=== PATIENT | male | born 1975 | race Two or more races ===

== ENCOUNTER 2022-09-15 18:52 | Inpatient (IN) | payer MEDICAID, SELFPAY ==
--- NOTE | ~2022-09-15 | XR_ITS ---
EXAMINATION: XR CHEST CLINICAL INFORMATION: Cough, fever, chills. COMPARISON: None TECHNIQUE: Frontal view of the chest was obtained. FINDINGS: The lungs are well expanded. There is no focal consolidation, edema, or effusion. No pneumothorax. The cardiomediastinal silhouette is within normal limits. No acute osseous abnormality. XR/XR chest 1V IMPRESSION: Clear lungs.
[2022-09-15 21:12] VITALS: BP 141/51; PULSE 90; RESP 14; TEMP 37.7; O2SAT 94; BMI 22.1
[2022-09-15 21:27] LABS: Glucose, Whole Blood 389 mg/dL (60-115)
[2022-09-16 05:51] VITALS: BP 124/81; PULSE 78; RESP 18; TEMP 37; O2SAT 96
[2022-09-16 06:04] LABS: Glucose, Whole Blood 268 mg/dL (60-115)
[2022-09-16 06:06] VITALS: TEMP 37.5
--- NOTE | 2022-09-16 06:28 | PC.NURSE ---
this rn assumed care of pt @ [id number]. pt brought back to room from waiting room. iv placed L FA. blood work obtained at this time and sent down to lab. pt cousin at bedside
[2022-09-16 06:30] LABS: Basophils Percent Auto 0.1 % (0-2); Eosinophils Absolute Auto 0.1 X10*3/uL (0.0-0.4); Eosinophils Percent Auto 1.5 % (0-4); Hemoglobin 11.2 g/dl (14.0-18.0); Imm Gran Abs Auto 0.02 X10*3/uL (0.00-0.03); Imm Gran Pct Auto 0.2 % (0.0-0.4); Lymphocytes Absolute Auto 1.3 X10*3/uL (1.2-4.9); Lymphocytes Percent Auto 15.5 % (20-40); MANUAL DIFF FLAG NO; Mean Corpuscular HGB Conc 32.9 g/dl (31.0-36.0); Mean Corpuscular Hemoglobin 27.1 pg (27.0-33.0); Mean Corpuscular Volume 82.1 fL (80.0-98.0); Mean Platelet Volume 9.6 fL (9.4-12.4); Monocytes Absolute Auto 0.8 X10*3/uL (0.1-1.2); Monocytes Percent Auto 9.6 % (2-11); Neutrophils Absolute Auto 5.9 x10*3/uL (2.0-8.3); Neutrophils Percent Auto 73.1 % (45-73); Platelet Count 223 X10*3/uL (160-400); Red Blood Count 4.14 X10*6/uL (4.60-5.80); Red Cell Distribution Width 13.2 % (11.0-16.0)
[2022-09-16 06:53] LABS: Alanine Aminotransferase 23 U/L (0-40); Alkaline Phosphatase 45 U/L (39-117); Anion Gap 12 (12-20); Aspartate Amino Transferase 22 U/L (5-37); Bilirubin Total 0.7 mg/dL (0.0-1.0); Blood Urea Nitrogen 8 mg/dL (9-16); Calcium 7.7 mg/dL (8.4-10.2); Carbon Dioxide 23 mmol/L (22-29); Chloride 103 mmol/L (96-108); Creatinine Clr Calc Pharmacy 140.9; Estimated Glomerular Filt Rate > 60; Glucose Random 282 mg/dL (60-115); Potassium 4.4 mmol/L (3.3-5.1); Sodium 134 mmol/L (135-145); Total Protein 5.6 g/dL (6.5-8.0)
[2022-09-16 07:16] VITALS: BP 117/61; PULSE 73; RESP 20; TEMP 36.7; O2SAT 96
--- NOTE | 2022-09-16 10:11 | ED_ITS ---
HPI - General Adult General Chief complaint: General Medical Stated complaint: Diabetic Leg Swelling/ Hand numbness Time Seen by Provider: 09/16/22 10:11 Source: patient Mode of arrival: ambulatory Limitations: no limitations History of Present Illness HPI narrative: 47-year-old male who presents emergency department for evaluation of swelling of his hands and feet times 2-3 days, erythema and pain in his groin area times 2-3 days. The patient is homeless. He states he was incarcerated from April to June while he was incarcerated his diabetes was treated with Lantus 60 units at night and insulin prior to meals. He also states that he was on methadone 85 mg daily. Since being [facility] he is not taking insulin or methadone. He states that he last injected heroin 2 months prior but is continuing to use intranasal heroin 8 to 10 bags per day. He states he last used 2 bags of heroin yesterday. Patient also smokes crack cocaine 8-9 rocks daily and last used yesterday as well. He states that over the past 2-3 days he has had redness and swelling of his hands with some pain in the swollen area. He has also noted swelling in his feet with no erythema, not as prominent as in his hands. He also states that he has a rash in his groin area that is red, hot and painful. He has been applying Vaseline to the groin rash. Review of systems positive for fever, chills, rhinorrhea, sore throat, cough, chest pain, shortness of breath, nausea, vomiting and diarrhea. Related Data Allergies Allergy/AdvReac Type Severity Reaction Status Date / Time No Known Allergies Allergy Unknown NONE Unverified 04/02/20 16:02 [NO KNOWN ALLERGIES] Review of Systems Review of Systems: Yes all other systems are reviewed and are negative [facility] Social History Social History Advance Directives: No Advance Directives Information Provided: No Physical Exam ED Vital Signs: Vital Signs - 24 hr 09/15/22 21:12 09/16/22 05:51 09/16/22 06:06 Temperature 99.8 F 98.6 F 99.5 F Pulse Rate 90 78 Respiratory Rate 14 18 Blood Pressure 141/51 H 124/81 Pulse Oximetry 94 96 Oxygen Delivery Method Room Air 09/16/22 07:16 09/16/22 11:18 Temperature 98.0 F 98.6 F Pulse Rate 73 67 Respiratory Rate 20 18 Blood Pressure 117/61 121/64 Pulse Oximetry 96 98 Oxygen Delivery Method Room Air Room Air BMI result Body Mass Index 22.1 Const Other: Awake, alert, male patient, pleasant, cooperative does not appear to be in distress. Does not appear to be actively withdrawing from opiates [facility] Head: Yes normal to inspection, Yes normocephalic and Yes atraumatic Ears: external ears normal General nose exam: Normal external nose present Face and sinus: Yes normal facial exam Mouth: Normal oral and palatal mucosa present Throat: Yes posterior oropharynx normal Eyes General: appearance normal, both eyes and all related structures Pupils: Equal, round and reactive pupils present Neck Neck: Yes normal visual inspection, Yes no lymphadenopathy, Yes trachea midline and Yes supple Chest Chest palpation & inspection: normal inspection of the chest and normal palpation of entire chest wall Resp Effort & Inspection: normal respiratory effort and able to speak in complete sentences Auscultation: clear to auscultation bilaterally Cardio Rate: regular rate Rhythm: regular rhythm Heart sounds: S1 normal heart sound present, S2 normal heart sound present and no murmurs GI Inspection: Yes normal to inspection Palpation (GI): Soft to palpation, nontender and no guarding Auscultation: normal bowel sounds Other: Patient has a erythematous warm rash to the triggers areas of the groin, covering the penis, scrotum peritoneal area and buttocks area General: Yes no CVA tenderness Back/Spine/Pelvis Back: no CVA tenderness Neuro Cranial nerves: Yes CN's II-XII intact bilaterally and Yes Equal, round and reactive pupils present Cognition (Neuro): normal cognition Motor exam (neuro): 5/5 motor strength present throughout Extrem Other: Bilateral hand swelling, symmetric, with erythema increased warmth, tender to palpation Psych Appearance: grossly normal Speech and movement: Normal speech and movement present Affect: normal affect Attitude: cooperative Medical Decision Making Medical Decision Making MDM Narrative: 47-year-old male with a history of diabetes mellitus, heroin and crack cocaine use disorder, uses daily but denies injection use, non with insulin times several months who presents emergency department for evaluation of swelling of his hands bilaterally x3 days and rash in the groin area. Patient has also been experiencing fever, chills, rhinorrhea, sore throat, cough, chest pain, shortness of breath, nausea, vomiting and diarrhea. The patient exam did reveal bilateral hand swelling with erythema and warmth, concerned the patient may have cellulitis verses inflammatory arthritis. Patient's grain rash is also concerning for cellulitis versus a fungal infection. I did order laboratory evaluation on the patient. I also ordered a care team consult for the patient to evaluate him for possible restarting methadone for is heroin use disorder. 12 17: Patient's laboratory evaluation did reveal elevated inflammatory markers (ESR and CRP) otherwise unremarkable. COVID-19 was negative. Patient was ordered to get vancomycin 1750 mg IV and ceftriaxone 1 g IV. I also ordered nystatin ointment to be applied to the groin and peritoneal rash. Patient was evaluated by the care team and they recommended starting the patient on methadone 30 mg daily and they will follow the patient to determine further dosing. I did discuss, over tiger text, the patient with the covering hospitalist, Dr. Cheek and the patient will be admitted for further treatment. Differential Diagnosis Differential diagnosis includes was not limited to cellulitis of the hands, inflammatory arthritis of the hands cellulitis of the groin and buttocks area, fungal infection of the groin buttocks area, bacteremia, opiate withdrawal Consult Healthcare Provider Management of the patient was discussed with: Hospitalist Lab Data MDM Lab Attestation statement: I reviewed the patient's lab results. My independent interpretation patient's laboratory evaluation as follows: WBC normal 8000, anemia with an H&H of 12 and 34. Glucose elevated 282. ESR elevated 34. CRP elevated 11.9. Lactate was normal 0.7 09/16/22 06:26 09/16/22 06:26 Labs: Lab Results 09/15/22 09/16/22 09/16/22 Range/Units 21:22 06:00 06:26 WBC 8.0 (4.8-10.8) X10*3/uL RBC 4.14 L (4.60-5.80) X10*6/uL Hgb 11.2 L (14.0-18.0) g/dl Hct 34.0 L (42.0-52.0) % MCV 82.1 (80.0-98.0) fL MCH 27.1 (27.0-33.0) pg MCHC 32.9 (31.0-36.0) g/dl RDW 13.2 (11.0-16.0) % Plt Count 223 (160-400) X10*3/uL MPV 9.6 (9.4-12.4) fL Immature Gran % (Auto) 0.2 (0.0-0.4) % Neut % (Auto) 73.1 H (45-73) % Lymph % (Auto) 15.5 L (20-40) % [place] % (Auto) 9.6 (2-11) % Eos % (Auto) 1.5 (0-4) % Baso % (Auto) 0.1 (0-2) % Lymph # (Auto) 1.3 (1.2-4.9) X10*3/uL [place] # (Auto) 0.8 (0.1-1.2) X10*3/uL Eos # (Auto) 0.1 (0.0-0.4) X10*3/uL Baso # (Auto) 0.0 (0.0-0.2) X10*3/uL Abs Immat Gran (auto) 0.02 (0.00-0.03) X10*3/uL Absolute Neuts (auto) 5.9 (2.0-8.3) x10*3/uL Absolute Nucleated RBC 0.000 (0.0-0.012) X10*3/uL Nucleated RBC % (auto) 0.0 (0.0-0.2) /100WBC ESR (0-15) MM/HR Sodium (135-145) mmol/L Potassium (3.3-5.1) mmol/L Chloride (96-108) mmol/L Carbon Dioxide (22-29) mmol/L Anion Gap (12-20) BUN (9-16) mg/dL Creatinine (0.5-1.4) mg/dL Estim Creat Clear Calc Estimated GFR POC Glucose 389 H* 268 H (60-115) mg/dL Random Glucose (60-115) mg/dL Uric Acid (3.4-7.0) mg/dL Calcium (8.4-10.2) mg/dL Total Bilirubin (0.0-1.0) mg/dL AST (5-37) U/L ALT (0-40) U/L Alkaline Phosphatase (39-117) U/L C-Reactive Protein (< or = 0.50) mg/dL Total Protein (6.5-8.0) g/dL Albumin (3.5-5.0) g/dL 09/16/22 09/16/22 Range/Units 06:26 06:26 WBC (4.8-10.8) X10*3/uL RBC (4.60-5.80) X10*6/uL Hgb (14.0-18.0) g/dl Hct (42.0-52.0) % MCV (80.0-98.0) fL MCH (27.0-33.0) pg MCHC (31.0-36.0) g/dl RDW (11.0-16.0) % Plt Count (160-400) X10*3/uL MPV (9.4-12.4) fL Immature Gran % (Auto) (0.0-0.4) % Neut % (Auto) (45-73) % Lymph % (Auto) (20-40) % [place] % (Auto) (2-11) % Eos % (Auto) (0-4) % Baso % (Auto) (0-2) % Lymph # (Auto) (1.2-4.9) X10*3/uL [place] # (Auto) (0.1-1.2) X10*3/uL Eos # (Auto) (0.0-0.4) X10*3/uL Baso # (Auto) (0.0-0.2) X10*3/uL Abs Immat Gran (auto) (0.00-0.03) X10*3/uL Absolute Neuts (auto) (2.0-8.3) x10*3/uL Absolute Nucleated RBC (0.0-0.012) X10*3/uL Nucleated RBC % (auto) (0.0-0.2) /100WBC ESR 34 H (0-15) MM/HR Sodium 134 L (135-145) mmol/L Potassium 4.4 (3.3-5.1) mmol/L Chloride 103 (96-108) mmol/L Carbon Dioxide 23 (22-29) mmol/L Anion Gap 12 (12-20) BUN 8 L (9-16) mg/dL Creatinine 0.61 (0.5-1.4) mg/dL Estim Creat Clear Calc 140.9 Estimated GFR > 60 POC Glucose (60-115) mg/dL Random Glucose 282 H (60-115) mg/dL Uric Acid 2.1 L (3.4-7.0) mg/dL Calcium 7.7 L (8.4-10.2) mg/dL Total Bilirubin 0.7 (0.0-1.0) mg/dL AST 22 (5-37) U/L ALT 23 (0-40) U/L Alkaline Phosphatase 45 (39-117) U/L C-Reactive Protein 11.94 H (< or = 0.50) mg/dL Total Protein 5.6 L (6.5-8.0) g/dL Albumin 3.0 L (3.5-5.0) g/dL Discharge Plan Discharge Patient Disposition: Admitted As Inpatient Interventions: JACOB Worksheet Last Done: 09/15/22 23:47
[2022-09-16 11:06] LABS: C Reactive Protein 11.94 mg/dL (< or = 0.50); Uric Acid 2.1 mg/dL (3.4-7.0)
[2022-09-16 11:18] VITALS: BP 121/64; PULSE 67; RESP 18; TEMP 37; O2SAT 98
--- NOTE | 2022-09-16 11:23 | PC.NURSE ---
Patient sitting on bed, no apparent distress noted, swelling noted to bilateral hands. Blood cultures being obtained at this time.
--- NOTE | 2022-09-16 11:28 | MHC.RECOVRN ---
Met with pt in ED19 after consult placed to CARE Team for OUD. Pt sitting in bed, awake, alert, easily engages in conversation, appears restless, yawning. Pt reports using heroin, 1-1.5 bundles daily, occasionally IV but mostly IN, last use yesterday. Pt reports the same amount of crack/cocaine, IN/INH. Pt reports abdominal cramping, body aches, anxiety. Pt was in snf from April-Jun 24 and had been on 85 mg methadone, per pt report. Upon release, pt reports miscommunication with [facility]ke[facility] and did not continue methadone. Pt would like to restart and connect to [facility] while here. Discussed with Miranda Wong APRN.
[2022-09-16 11:38] LABS: Erythrocyte Sedimentation Rate 34 MM/HR (0-15)
[2022-09-16 11:49] LABS: COVID-19 Test Negative (Negative); IDNOW Serial# 6674DD1D
[2022-09-16] MEDS: vancomycin HCL 1,000 MG, vancomycin HCL 750 MG in 0.9 % Sodium Chloride 500 ML 267.5 MG IV (12:01)
[2022-09-16 12:09] LABS: Lactic Acid 0.7 mmol/L (0.5-2.0)
--- NOTE | 2022-09-16 12:14 | PHA.PROG ---
Admission Date/Time: Indication: SKIN/STRUCTURE INFECTION Weight in k.039 kg Adjusted body weight in K.039 [place] body weight in K.7 Obesity Dosing Indication % IBW: 22.2 Serum Creatinine - Last 168 Hours 09/16/22 06:26 Creatinine 0.61 Estimated CrCl and GFR - Last 168 Hours 09/16/22 06:26 Estim Creat Clear Calc 140.9 Estimated GFR > 60 Vancomycin Loading Dose: 1750 Current Vancomycin Dosing Regimen: 1250 MG Q12 Vancomycin Monitoring using AUC goal of 400 - 600 range with trough as surrogate marker: EXPECTED AUC 433 AFTER 3RD DOSE Date and Time for next Vancomycin Level to be drawn: 09/17/22 @2100 Pharmacist Comments on Vancomycin Plan: GOOD RENAL FUNCTION. WILL MONITOR SCR DAILY FOR CHANGES. Vancomycin dosing will take advantage of [employer] as a clinical decision support tool that uses Bayesian modeling to calculate individual patient's pharmacokinetic parameters and forecast the patient's drug concentration time course with the target goal AUC 24 range of 400 - 600 mg/L/hr.
--- NOTE | 2022-09-16 12:25 | PM.IMHP ---
History of Present Illness Date of Service: 09/16/22 Chief Complaint: hand swelling and pain 47M PMH polysubstance use, now inhaled, last used iv about 1 year ptp per patient, DM non compliant, presented with 2-3 days bilateral hand and bilateral foot pain swelling and erythema as well as bilateral groind pain and erythema. Patient reports subjective fevers. Has not had similar symptoms in the past. Denies injecting within the past year. In ED was afebrile, elevated ESR and CRP. Review of Systems Review of Systems: Yes all other systems are reviewed and are negative [facility] Medical History (Updated 09/16/22 @ 12:28 by Sundeep Cheek MD) Diabetes mellitus Social History (Updated 09/16/22 @ 12:28 by Sundeep Cheek MD) Patient Tobacco Use Status: Current everyday Tobacco user Substance Use Type: Crack/Cocaine and Heroin Advance Directives: No Advance Directives Information Provided: No Meds Allergies Allergy/AdvReac Type Severity Reaction Status Date / Time No Known Allergies Allergy Unknown NONE Unverified 04/02/20 16:02 [NO KNOWN ALLERGIES] Active Medications: Current Medications Dextrose (Dextrose 50 % 25 Gm/50 Ml Syringe) 25 gm IVPUSH Q15M PRN; Protocol PRN Reason: per Hypoglycemia Standing Ord. Glucose (Glucose Gel 15 Gm Gel..Gram.) 15 gm PO Q15M PRN; Protocol PRN Reason: per Hypoglycemia Standing Ord. Vancomycin HCl 1,250 mg/ (Sodium Chloride) 250 mls @ 166.667 mls/hr IV Q12H [facility] Insulin Human Lispro (Insulin Lispro 100 Unit/Ml 3 Ml Vial) 0 unit SUBCUT QIDACHS [facility]; Protocol Pharmacy Consult (Consult Rx Vancomycin Dosing) 1 each MISCELLANE DAILY PRN PRN Reason: Consult order Sodium Chloride (0.9 % Sodium Chloride Flush 3 Ml Syringe) 3 ml IVFLUSH QSHIFT [facility] Physical Exam Vital Signs and Narrative: Vital Signs: Last Vital Signs Temp 98.6 F 09/16/22 11:18 Pulse 67 09/16/22 11:18 Resp 18 09/16/22 11:18 BP 121/64 09/16/22 11:18 Pulse Ox 98 09/16/22 11:18 O2 Del Method 09/16/22 11:18 BMI result Body Mass Index 22.1 Results Labs 09/16/22 06:26 09/16/22 06:26 Labs: Laboratory Results - last 24 hr 09/15/22 09/16/22 09/16/22 21:22 06:00 06:26 MCV 82.1 MCH 27.1 MCHC 32.9 RDW 13.2 Plt Count 223 MPV 9.6 Immature Gran % (Auto) 0.2 Neut % (Auto) 73.1 H Lymph % (Auto) 15.5 L [place] % (Auto) 9.6 Eos % (Auto) 1.5 Baso % (Auto) 0.1 Lymph # (Auto) 1.3 [place] # (Auto) 0.8 Eos # (Auto) 0.1 Baso # (Auto) 0.0 Abs Immat Gran (auto) 0.02 Absolute Neuts (auto) 5.9 Absolute Nucleated RBC 0.000 Nucleated RBC % (auto) 0.0 ESR Anion Gap Estim Creat Clear Calc Estimated GFR POC Glucose 389 H* 268 H Random Glucose Lactic Acid Uric Acid Calcium Total Bilirubin AST ALT Alkaline Phosphatase C-Reactive Protein Total Protein Albumin COVID-19 ([facility]) COVID-two.42.solutions Clin Com 09/16/22 09/16/22 09/16/22 06:26 06:26 11:24 MCV MCH MCHC RDW Plt Count MPV Immature Gran % (Auto) Neut % (Auto) Lymph % (Auto) [place] % (Auto) Eos % (Auto) Baso % (Auto) Lymph # (Auto) [place] # (Auto) Eos # (Auto) Baso # (Auto) Abs Immat Gran (auto) Absolute Neuts (auto) Absolute Nucleated RBC Nucleated RBC % (auto) ESR 34 H Anion Gap 12 Estim Creat Clear Calc 140.9 Estimated GFR > 60 POC Glucose Random Glucose 282 H Lactic Acid Uric Acid 2.1 L Calcium 7.7 L Total Bilirubin 0.7 AST 22 ALT 23 Alkaline Phosphatase 45 C-Reactive Protein 11.94 H Total Protein 5.6 L Albumin 3.0 L COVID-19 ([facility]) Negative COVID-19 Clin Com See Note 09/16/22 11:49 MCV MCH MCHC RDW Plt Count MPV Immature Gran % (Auto) Neut % (Auto) Lymph % (Auto) [place] % (Auto) Eos % (Auto) Baso % (Auto) Lymph # (Auto) [place] # (Auto) Eos # (Auto) Baso # (Auto) Abs Immat Gran (auto) Absolute Neuts (auto) Absolute Nucleated RBC Nucleated RBC % (auto) ESR Anion Gap Estim Creat Clear Calc Estimated GFR POC Glucose Random Glucose Lactic Acid 0.7 Uric Acid Calcium Total Bilirubin AST ALT Alkaline Phosphatase C-Reactive Protein Total Protein Albumin COVID-19 ([facility]) COVID-19 Clin Com Assessment and Plan (1) Diabetes mellitus: Status: Acute Plan 47M PMH polysubstance use and DM presented with oligoarthritis and erythema oligoarthritis and cellulitis vanc, rocephin follow up cultures, ID check hiv, hepatitis b,c polysubstance dependence with opiate withdrawal methadone addiction team following DM with hyperglycemia insulin monitor pocs dvt prophylaxis - lovenox full code patient with significant pain and withdrawal symptoms, at risk for sepsis and bacteremia due to substance use, therefore, expected to require atleast 2 midnights inpatient. Time Spent With Patient Time: Total time managing care of this patient today ____ minutes. Quality Stroke Does the patient have a stroke diagnosis?: No VTE Prior VTE?: No VTE Risk Level:: Medical - moderate - high VTE Device Contraindication: Treatment Not Indicated VTE Drug Contraindication: N/A - Med Ordered
[2022-09-16] MEDS: methADONE HCl 20 MG/2 ML ORAL.CONC 30 MG PO (12:26)
[2022-09-16 12:28] VITALS: BP 131/58; PULSE 69; RESP 18; O2SAT 98
--- NOTE | 2022-09-16 12:39 | PC.NURSE ---
pt alert and oriented, skin appropriate for ethnicity, respirations even and unlabored, pt's bilateral arms swollen/red/tender to touch reports pain 03/26 also states that he had tingling/numbness in bilateral legs pt's belongings secured with security because pt reports having hx of use of heroin/cocaine and crack. pt started on methadone to prevent withdrawals last use was yesterday
[2022-09-16 12:53] VITALS: BP 159/74; PULSE 63; RESP 16; TEMP 36.6; O2SAT 98
[2022-09-16] MEDS: cefTRIAXone sodium 1 GM in 0.9 % Sodium Chloride 50 ML IV (14:52)
[2022-09-16] MEDS: Nystatin Ointment 15 GM TUBE 1 APPL TOPICAL (14:53)
--- NOTE | 2022-09-16 15:24 | PC.NURSE ---
report received from JOVON Kidd Pt resting on stretcher at this time, Ceftriaxone finishing at this time. Pt reports continued pain in right hand. Pt provided with water at this time. Awaiting bed assignment
--- NOTE | 2022-09-16 16:02 | P.CNID_ITS ---
History of Present Illness Data of Consult Service Date: 09/16/22 Requesting physician: Sundeep Cheek Primary Care Provider: Unknown Physician HPI Reason for consult: hand pain and swelling He reports redness and swelling bilateral hands and feet over last three days. He reports snorting heroin and has taken cocaine. he has no fever or chills. Review of Systems Review of Systems: Yes all other systems are reviewed and are negative [facility] Past Medical History Medical History Diabetes mellitus Family History Family history: reviewed and not pertinent Social History Social History Patient Tobacco Use Status: Current everyday Tobacco user Substance Use Type: Crack/Cocaine and Heroin Advance Directives: No Advance Directives Information Provided: No Meds Allergies Allergy/AdvReac Type Severity Reaction Status Date / Time No Known Allergies Allergy Unknown NONE Unverified 04/02/20 16:02 [NO KNOWN ALLERGIES] Active Medications: Current Medications Dextrose (Dextrose 50 % 25 Gm/50 Ml Syringe) 25 gm IVPUSH Q15M PRN; Protocol PRN Reason: per Hypoglycemia Standing Ord. Glucose (Glucose Gel 15 Gm Gel..Gram.) 15 gm PO Q15M PRN; Protocol PRN Reason: per Hypoglycemia Standing Ord. Vancomycin HCl 1,250 mg/ (Sodium Chloride) 250 mls @ 166.667 mls/hr IV Q12H [facility] Ceftriaxone Sodium 1 gm/ (Sodium Chloride) 50 mls @ 100 mls/hr IV Q24H [facility] Last Infusion: 09/16/22 15:26 Dose: Infused Insulin Human Lispro (Insulin Lispro 100 Unit/Ml 3 Ml Vial) 0 unit SUBCUT QIDACHS [facility]; Protocol Pharmacy Consult (Consult Rx Vancomycin Dosing) 1 each MISCELLANE DAILY PRN PRN Reason: Consult order Sodium Chloride (0.9 % Sodium Chloride Flush 3 Ml Syringe) 3 ml IVFLUSH QSHIFT [facility] Last Admin: 09/16/22 15:22 Dose: Not Given Physical Exam Vital Signs: Vital Signs: Last Vital Signs Temp 97.8 F 09/16/22 12:53 Pulse 63 09/16/22 12:53 Resp 16 09/16/22 12:53 BP 159/74 H 09/16/22 12:53 Pulse Ox 98 09/16/22 12:53 O2 Del Method 09/16/22 12:53 BMI result Body Mass Index 22.1 Extrem: Other: reddened hands but can make fist Results Labs 09/16/22 06:26 09/16/22 06:26 Labs: Short CBC 09/16/22 Range/Units 06:26 WBC 8.0 (4.8-10.8) X10*3/uL Hgb 11.2 L (14.0-18.0) g/dl Hct 34.0 L (42.0-52.0) % Plt Count 223 (160-400) X10*3/uL BMP 09/16/22 06:26 Sodium 134 L Potassium 4.4 Chloride 103 Carbon Dioxide 23 BUN 8 L Creatinine 0.61 Calcium 7.7 L Liver Function 09/16/22 Range/Units 06:26 Total Bilirubin 0.7 (0.0-1.0) mg/dL AST 22 (5-37) U/L ALT 23 (0-40) U/L Alkaline Phosphatase 45 (39-117) U/L Albumin 3.0 L (3.5-5.0) g/dL Assessment and Plan (1) Diabetes mellitus: Status: Acute (2) Cellulitis of hand, right: Status: Acute (3) Cellulitis of hand, left: Status: Acute He is nontoxic and can bend hands so concern over frostbite. He is homeless Less likely bacteremia/endocarditis. Plan Vancomycin and Ceftriaxone until blood cultures back. Po Doxycycline for one week 100 mg bid on dischare Check HIV and Hepatititis C. Time Spent With Patient Time: Total time managing care of this patient today ____ minutes.
--- NOTE | 2022-09-16 16:44 | PHA.MEDREC ---
Pharmacy Consult ? Medication Reconciliation Pharmacy has completed the medication reconciliation. Spoke with pt who says he has not been taking any medications.
--- NOTE | 2022-09-16 17:02 | HO.ADDICT_ITS ---
History of Present Illness Date of Service: 09/16/2022 Chief Complaint: Cellulitis, Opiate withdrawal Reason for Consult: OUD --withdrawal managment HPI Narrative: Patient is a 47 year old male currently medically admitted for cellulitis. Patient reporting daily heroin use and withdrawal sx while in ED, ordered and administered methadone 30mg with positive effect. Seen by this underwriter solicitation director and plant health care technician in room 19 of main ED--awaiting transfer to medical floor. Awake, alert, pleasant and engaged in interview. Patient reports 30mg was very helpful, but he is still experiencing some restlessness and joint pain. He reports he would like to continue titrating dose and resume treatment with OTP upon discharge. Review of Systems Constitutional: Reports as per HPI Diagnostics Vital Signs (24Hr): Vital Signs - 24 hr 09/15/22 21:12 09/16/22 05:51 09/16/22 06:06 Temperature 99.8 F 98.6 F 99.5 F Pulse Rate 90 78 Respiratory Rate 14 18 Blood Pressure 141/51 H 124/81 Pulse Oximetry 94 96 Oxygen Delivery Method Room Air 09/16/22 07:16 09/16/22 11:18 09/16/22 12:28 Temperature 98.0 F 98.6 F Pulse Rate 73 67 69 Respiratory Rate 20 18 18 Blood Pressure 117/61 121/64 131/58 L Pulse Oximetry 96 98 98 Oxygen Delivery Method Room Air Room Air Room Air 09/16/22 12:53 Temperature 97.8 F Pulse Rate 63 Respiratory Rate 16 Blood Pressure 159/74 H Pulse Oximetry 98 Oxygen Delivery Method Room Air BMI result Body Mass Index 22.1 Labs 09/16/22 06:26 09/16/22 06:26 Labs: Laboratory Results - last 48 hr 09/15/22 09/16/22 09/16/22 21:22 06:00 06:26 WBC 8.0 RBC 4.14 L Hgb 11.2 L Hct 34.0 L MCV 82.1 MCH 27.1 MCHC 32.9 RDW 13.2 Plt Count 223 MPV 9.6 Immature Gran % (Auto) 0.2 Neut % (Auto) 73.1 H Lymph % (Auto) 15.5 L [place] % (Auto) 9.6 Eos % (Auto) 1.5 Baso % (Auto) 0.1 Lymph # (Auto) 1.3 [place] # (Auto) 0.8 Eos # (Auto) 0.1 Baso # (Auto) 0.0 Abs Immat Gran (auto) 0.02 Absolute Neuts (auto) 5.9 Absolute Nucleated RBC 0.000 Nucleated RBC % (auto) 0.0 ESR Sodium Potassium Chloride Carbon Dioxide Anion Gap BUN Creatinine Estim Creat Clear Calc Estimated GFR POC Glucose 389 H* 268 H Random Glucose Lactic Acid Uric Acid Calcium Total Bilirubin AST ALT Alkaline Phosphatase C-Reactive Protein Total Protein Albumin COVID-19 (IV[facility]) COVID-19 Clin Com 09/16/22 09/16/22 09/16/22 06:26 06:26 11:24 WBC RBC Hgb Hct MCV MCH MCHC RDW Plt Count MPV Immature Gran % (Auto) Neut % (Auto) Lymph % (Auto) [place] % (Auto) Eos % (Auto) Baso % (Auto) Lymph # (Auto) [place] # (Auto) Eos # (Auto) Baso # (Auto) Abs Immat Gran (auto) Absolute Neuts (auto) Absolute Nucleated RBC Nucleated RBC % (auto) ESR 34 H Sodium 134 L Potassium 4.4 Chloride 103 Carbon Dioxide 23 Anion Gap 12 BUN 8 L Creatinine 0.61 Estim Creat Clear Calc 140.9 Estimated GFR > 60 POC Glucose Random Glucose 282 H Lactic Acid Uric Acid 2.1 L Calcium 7.7 L Total Bilirubin 0.7 AST 22 ALT 23 Alkaline Phosphatase 45 C-Reactive Protein 11.94 H Total Protein 5.6 L Albumin 3.0 L COVID-19 (IVETH) Negative COVID-19 Indigoz Com See Note 09/16/22 11:49 WBC RBC Hgb Hct MCV MCH MCHC RDW Plt Count MPV Immature Gran % (Auto) Neut % (Auto) Lymph % (Auto) [place] % (Auto) Eos % (Auto) Baso % (Auto) Lymph # (Auto) [place] # (Auto) Eos # (Auto) Baso # (Auto) Abs Immat Gran (auto) Absolute Neuts (auto) Absolute Nucleated RBC Nucleated RBC % (auto) ESR Sodium Potassium Chloride Carbon Dioxide Anion Gap BUN Creatinine Estim Creat Clear Calc Estimated GFR POC Glucose Random Glucose Lactic Acid 0.7 Uric Acid Calcium Total Bilirubin AST ALT Alkaline Phosphatase C-Reactive Protein Total Protein Albumin COVID-19 (IVETH) COVID-19 Clin Com Imaging Radiology Impressions: ITS Impressions Chest X-Ray 09/16/22 12:46 IMPRESSION: Clear lungs. Mental Status Exam Mental Status Exam Patient Appearance: Appropriate Level of Consciousness: Awake, Appropriate and Alert Affect Description: Calm and Appropriate Thought Process: Intact and Goal Oriented Judgement: Good Medications Medications Current Medications Dextrose (Dextrose 50 % 25 Gm/50 Ml Syringe) 25 gm IVPUSH Q15M PRN; Protocol PRN Reason: per Hypoglycemia Standing Ord. Glucose (Glucose Gel 15 Gm Gel..Gram.) 15 gm PO Q15M PRN; Protocol PRN Reason: per Hypoglycemia Standing Ord. Vancomycin HCl 1,250 mg/ (Sodium Chloride) 250 mls @ 166.667 mls/hr IV Q12H [facility] Ceftriaxone Sodium 1 gm/ (Sodium Chloride) 50 mls @ 100 mls/hr IV Q24H [facility] Last Infusion: 09/16/22 15:26 Dose: Infused Insulin Human Lispro (Insulin Lispro 100 Unit/Ml 3 Ml Vial) 0 unit SUBCUT QIDACHS [facility]; Protocol Pharmacy Consult (Consult Rx Vancomycin Dosing) 1 each MISCELLANE DAILY PRN PRN Reason: Consult order Sodium Chloride (0.9 % Sodium Chloride Flush 3 Ml Syringe) 3 ml IVFLUSH QSHIFT [facility] Last Admin: 09/16/22 15:22 Dose: Not Given Allergies Allergies Allergy/AdvReac Type Severity Reaction Status Date / Time No Known Allergies Allergy Unknown NONE Unverified 04/02/20 16:02 [NO KNOWN ALLERGIES] Assessment & Plan Assessment & Plan (1) Opioid use disorder: Status: Acute Code(s): F11.90 - Opioid use, unspecified, uncomplicated Assessment and Plan: * methadone 10mg this evening * methadone 45mg in AM * UDS * clonidine PRN * will continue to follow Total time managing care of this patient today _30___ minutes. [facility] Past Medical History Medical History Diabetes mellitus Family History Family history: reviewed and not pertinent Social History Social History Patient Tobacco Use Status: Current everyday Tobacco user Substance Use Type: Crack/Cocaine and Heroin Advance Directives: No Advance Directives Information Provided: No
[2022-09-16 18:09] LABS: Glucose, Whole Blood 258 mg/dL (60-115)
[2022-09-16] MEDS: methADONE HCl 20 MG/2 ML ORAL.CONC 10 MG PO (19:51)
[2022-09-16] MEDS: cloNIDine HCL 0.1 MG TABLET PO (20:05)
[2022-09-16] MEDS: 0.9 % Sodium Chloride Flush 3 ML SYRINGE IVFLUSH (20:07)
[2022-09-16 21:14] LABS: Glucose, Whole Blood 367 mg/dL (60-115)
[2022-09-16 21:38] LABS: Amphetamine Screen Urine Not Detected (Not Detect); Barbiturates, Urine Not Detected (Not Detect); Benzodiazepines Screen Urine Not Detected (Not Detect); Cannabinoid Screen Urine Not Detected (Not Detect); Cocaine Screen Urine POSITIVE (Not Detect); Fentanyl, urine POSITIVE (Not Detect); Opiate Screen Urine POSITIVE (Not Detect); Phencyclidine Screen Urine Not Detected (Not Detect)
[2022-09-16] MEDS: Insulin Lispro 100 UNIT/ML 3 ML VIAL SUBCUT (22:06)
[2022-09-16] MEDS: vancomycin HCL 1,250 MG in 0.9 % Sodium Chloride 250 ML 166.67 MG IV (22:13)
[2022-09-17 00:29] VITALS: BMI 22.4
[2022-09-17 03:50] VITALS: BP 128/66; PULSE 63; RESP 18; TEMP 36.8; O2SAT 99
[2022-09-17 06:16] LABS: Hematocrit 36.8 % (42.0-52.0); Mean Corpuscular HGB Conc 32.6 g/dl (31.0-36.0); Mean Corpuscular Hemoglobin 26.4 pg (27.0-33.0); Mean Corpuscular Volume 81.1 fL (80.0-98.0); Mean Platelet Volume 9.6 fL (9.4-12.4); Platelet Count 241 X10*3/uL (160-400); Red Blood Count 4.54 X10*6/uL (4.60-5.80); White Blood Count 7.4 X10*3/uL (4.8-10.8)
[2022-09-17 06:50] LABS: Anion Gap 13 (12-20); Blood Urea Nitrogen 11 mg/dL (9-16); Calcium 7.9 mg/dL (8.4-10.2); Carbon Dioxide 24 mmol/L (22-29); Chloride 103 mmol/L (96-108); Creatinine Clr Calc Pharmacy 124.5; Estimated Glomerular Filt Rate > 60; Magnesium 1.9 mg/dL (1.6-2.6); Potassium 4.3 mmol/L (3.3-5.1); Sodium 136 mmol/L (135-145)
[2022-09-17 07:21] LABS: Glucose Fasting 355 mg/dL (60-99)
[2022-09-17 08:00] VITALS: BP 133/63; PULSE 63; RESP 18; TEMP 37.3; O2SAT 98
[2022-09-17 08:12] LABS: Glucose, Whole Blood 292 mg/dL (60-115)
[2022-09-17] MEDS: methADONE HCl 20 MG/2 ML ORAL.CONC 45 MG PO (08:28)
[2022-09-17] MEDS: Insulin Lispro 100 UNIT/ML 3 ML VIAL SUBCUT ×4 (08:31→21:10)
[2022-09-17] MEDS: Insulin Glargine,Hum.rec.anlog 100 UNIT/ML 10 ML VIAL 15 UNIT SUBCUT (08:31)
[2022-09-17] MEDS: 0.9 % Sodium Chloride Flush 3 ML SYRINGE IVFLUSH ×3 (08:31→21:12)
--- NOTE | 2022-09-17 09:34 | P.PNIM_ITS ---
Subjective Subjective Date of Service: 09/17/22 Interval History: improving Physical Exam Vital Signs: Vital Signs: Last Vital Signs Temp 99.2 F 09/17/22 08:00 Pulse 63 09/17/22 08:00 Resp 18 09/17/22 08:00 BP 133/63 09/17/22 08:00 Pulse Ox 98 09/17/22 08:00 O2 Del Method 09/17/22 08:00 BMI result Body Mass Index 22.4 imprving hand swelling and tenderness Objective Data Active Medications Clonidine HCl (Clonidine Hcl 0.1 Mg Tablet) 0.1 mg PO TID PRN; Protocol PRN Reason: anxiety/restlessness Last Admin: 09/16/22 20:05 Dose: 0.1 mg Documented By: ANYA Dextrose (Dextrose 50 % 25 Gm/50 Ml Syringe) 25 gm IVPUSH Q15M PRN; Protocol PRN Reason: per Hypoglycemia Standing Ord. Glucose (Glucose Gel 15 Gm Gel..Gram.) 15 gm PO Q15M PRN; Protocol PRN Reason: per Hypoglycemia Standing Ord. Vancomycin HCl 1,250 mg/ (Sodium Chloride) 250 mls @ 166.667 mls/hr IV Q12H [facility] Last Infusion: 09/17/22 00:09 Dose: 0 mls/hr Documented By: ANYA Ceftriaxone Sodium 1 gm/ (Sodium Chloride) 50 mls @ 100 mls/hr IV Q24H [facility] Last Infusion: 09/16/22 15:26 Dose: 0 mls/hr Documented By: VICTORIANO Insulin Glargine (Insulin Glargine,Hum.Rec.Anlog 100 Unit/Ml 10 Ml Vial) 15 unit SUBCUT DAILY [facility] Last Admin: 09/17/22 08:31 Dose: 15 unit Documented By: VOLODYMYR Insulin Human Lispro (Insulin Lispro 100 Unit/Ml 3 Ml Vial) 0 unit SUBCUT QIDACHS [facility]; Protocol Last Admin: 09/17/22 08:31 Dose: 6 unit Documented By: VOLODYMYR Methadone HCl (Methadone Hcl 20 Mg/2 Ml Oral.Conc) 45 mg PO DAILY [facility] Last Admin: 09/17/22 08:28 Dose: 45 mg Documented By: VOLODYMYR Pharmacy Consult (Consult Rx Vancomycin Dosing) 1 each MISCELLANE DAILY PRN PRN Reason: Consult order Sodium Chloride (0.9 % Sodium Chloride Flush 3 Ml Syringe) 3 ml IVFLUSH QSHIFT [facility] Last Admin: 09/17/22 08:31 Dose: 3 ml Documented By: VOLODYMYR Labs 09/17/22 06:08 09/17/22 06:08 Labs: Laboratory Results - last 24 hr 09/15/22 09/16/22 09/16/22 21:22 06:26 06:26 MCV MCH MCHC RDW Plt Count MPV Absolute Nucleated RBC Nucleated RBC % (auto) ESR 34 H Anion Gap Estim Creat Clear Calc Estimated GFR POC Glucose 389 H* Fasting Glucose Lactic Acid Uric Acid 2.1 L Calcium Magnesium C-Reactive Protein 11.94 H Urine Opiates Screen Urine Fentanyl Screen Ur Barbiturates Screen Ur Phencyclidine Scrn Ur Amphetamines Screen U Benzodiazepines Scrn Urine Cocaine Screen U Marijuana (THC) Screen COVID-19 (IVETH) COVIDInnovid 09/16/22 09/16/22 09/16/22 11:24 11:49 18:06 MCV MCH MCHC RDW Plt Count MPV Absolute Nucleated RBC Nucleated RBC % (auto) ESR Anion Gap Estim Creat Clear Calc Estimated GFR POC Glucose 258 H Fasting Glucose Lactic Acid 0.7 Uric Acid Calcium Magnesium C-Reactive Protein Urine Opiates Screen Urine Fentanyl Screen Ur Barbiturates Screen Ur Phencyclidine Scrn Ur Amphetamines Screen U Benzodiazepines Scrn Urine Cocaine Screen U Marijuana (THC) Screen COVID-19 (IVETH) Negative COVID-19 LocAsian See Note 09/16/22 09/16/22 09/17/22 20:30 20:43 06:08 MCV 81.1 MCH 26.4 L MCHC 32.6 RDW 13.0 Plt Count 241 MPV 9.6 Absolute Nucleated RBC 0.000 Nucleated RBC % (auto) 0.0 ESR Anion Gap Estim Creat Clear Calc Estimated GFR POC Glucose 367 H* Fasting Glucose Lactic Acid Uric Acid Calcium Magnesium C-Reactive Protein Urine Opiates Screen POSITIVE H Urine Fentanyl Screen POSITIVE H Ur Barbiturates Screen Not Detected Ur Phencyclidine Scrn Not Detected Ur Amphetamines Screen Not Detected U Benzodiazepines Scrn Not Detected Urine Cocaine Screen POSITIVE H U Marijuana (THC) Screen Not Detected COVID-19 (IVETH) COVID-MamboCar 09/17/22 09/17/22 06:08 07:54 MCV MCH MCHC RDW Plt Count MPV Absolute Nucleated RBC Nucleated RBC % (auto) ESR Anion Gap 13 Estim Creat Clear Calc 124.5 Estimated GFR > 60 POC Glucose 292 H Fasting Glucose 355 H* Lactic Acid Uric Acid Calcium 7.9 L Magnesium 1.9 C-Reactive Protein Urine Opiates Screen Urine Fentanyl Screen Ur Barbiturates Screen Ur Phencyclidine Scrn Ur Amphetamines Screen U Benzodiazepines Scrn Urine Cocaine Screen U Marijuana (THC) Screen COVID-19 (IVETH) COVID-19 Clin Com Assessment and Plan (1) Opioid use disorder: Status: Acute Plan 47M PMH polysubstance use and DM presented with hand swelling and erythema lanier bite and cellulitis improving continue vanc, rocephin? follow up cultures, ID appreciated follow up hiv, hepatitis b,c polysubstance dependence with opiate withdrawal methadone addiction team following DM with hyperglycemia insulin monitor pocs dvt prophylaxis - lovenox full code reason for continued hospitalization:awaiting cultures Time Spent With Patient Time: Total time managing care of this patient today ____ minutes. Quality Stroke Does the patient have a stroke diagnosis?: No VTE Prior VTE?: No VTE Risk Level:: Medical - moderate - high VTE Device Contraindication: Treatment Not Indicated VTE Drug Contraindication: N/A - Med Ordered
--- NOTE | 2022-09-17 10:24 | MHC.RECOVRN ---
Attempted to meet with pt in 360 to follow up after methadone initiation yesterday. Pt received 45 mg this morning. Pt laying in bed, asleep, briefly wakes to voice. Unable to stay awake for conversation. Will continue to follow.
[2022-09-17 11:20] LABS: Glucose, Whole Blood 237 mg/dL (60-115)
[2022-09-17] MEDS: cefTRIAXone sodium 1 GM in 0.9 % Sodium Chloride 50 ML IV (12:52)
[2022-09-17 13:38] LABS: Vancomycin Random 4.1 mcg/mL (15-20)
--- NOTE | 2022-09-17 13:53 | HE.PHANOTE ---
RE Felisha Patient Lost IV access this morning and missed the 1100 dose. I decided to put in a random level after two doses that came back very low. The dose/frequency was increased to 1g q8h. Suspected AUC at steady state is 490, with a trough of 13.4. Will get a level 3/5 @1200 after three doses. candice
[2022-09-17] MEDS: vancomycin HCL 1,000 MG in 0.9 % Sodium Chloride 250 ML 270 MG IV ×2 (14:47→23:19)
--- NOTE | 2022-09-17 14:49 | MHC.CM.PN ---
PT REPORTS HE IS CURRENTLY HOMELESS HE IS NOT CONNECTED TO ANY COMMUNITY SERVICES HE DOES NOT USE DME HE REPORTS HE NO LONGER HAS A PCP + COVID [facility] DECLINES HCP PT REPORTS HE IS INTERESTED IN GOING TO [facility] FROM HERE RECOVERY CONSULT WILL BE REQUESTED PT WILL NEED TRANSPORT
--- NOTE | 2022-09-17 14:56 | MHC.RECOVRN ---
Met with pt in 360. Awake, alert, easily engages in conversation. Pt reports feeling much better after 45 mg methadone. Prior to dose, pt reports loose stool. Currently, pt reports increase in chills and body aches. Pt would like to continue titrating methadone. Referral placed to [facility] to continue methadone after dc, per pt request. Pt denies other questions or concerns at this time. Discussed with Miranda Wong APRN.
[2022-09-17 15:40] VITALS: BP 100/58; PULSE 79; RESP 20; TEMP 36.6; O2SAT 98
[2022-09-17 15:55] LABS: Glucose, Whole Blood 309 mg/dL (60-115)
[2022-09-17 19:51] VITALS: BP 99/56; PULSE 58; RESP 18; TEMP 37.2; O2SAT 99
[2022-09-17 20:23] LABS: Glucose, Whole Blood 172 mg/dL (60-115)
[2022-09-18 03:31] VITALS: BP 156/70; PULSE 60; RESP 17; TEMP 36.6; O2SAT 98
[2022-09-18] MEDS: vancomycin HCL 1,000 MG in 0.9 % Sodium Chloride 250 ML 270 MG IV (05:31)
[2022-09-18 08:00] VITALS: BP 179/89; PULSE 58; RESP 18; TEMP 37.3; O2SAT 98
[2022-09-18 08:06] LABS: Glucose, Whole Blood 258 mg/dL (60-115)
[2022-09-18] MEDS: Insulin Lispro 100 UNIT/ML 3 ML VIAL SUBCUT ×2 (08:37→12:10)
[2022-09-18] MEDS: methADONE HCl 20 MG/2 ML ORAL.CONC 50 MG PO (08:37)
[2022-09-18] MEDS: Insulin Glargine,Hum.rec.anlog 100 UNIT/ML 10 ML VIAL 15 UNIT SUBCUT (08:37)
[2022-09-18] MEDS: 0.9 % Sodium Chloride Flush 3 ML SYRINGE IVFLUSH (08:38)
--- NOTE | 2022-09-18 08:47 | PM.DS ---
DS: Providers Provider Date of Service: 09/18/22 Date of admission: 09/16/22 12:24 Primary care physician: Unknown Physician Consults: 09/16/22 10:30 Consult to Care Team Stat Comment: Reason for consultation: Heroin use disorder, was on methadone, being admitted for cellulitis 09/16/22 12:05 Addiction Medicine Stat Consulting Provider: Addiction Covering Reason for consultation: METHADONE DOSING Has provider been notified: No 09/16/22 12:21 Consult to Infectious Diseases Routine Consulting Provider: Lorenza Sharp Reason for consultation: oligoarthritis, cellulitis in polysubstance use DS: Diagnosis Discharge Diagnosis (1) Opioid use disorder: Status: Acute DS: Summary Hospital Course Hospital Course: from initial hpi: 47M PMH polysubstance use, now inhaled, last used iv about 1 year ptp per patient, DM non compliant, presented with 2-3 days bilateral hand and bilateral foot pain swelling and erythema as well as bilateral groind pain and erythema.? Patient reports subjective fevers.? Has not had similar symptoms in the past.? Denies injecting within the past year.? In ED was afebrile, elevated ESR and CRP. hospital course: Admitted for frostbite and cellulitis. He was treated with vancomycin ceftriaxone with improvement. Cultures were negative. He was seen by infectious disease recommended screening for viral hepatitis and HIV which was done and pending and should be followed up outpatient and outpatient treatment with doxycycline. Patient was also symptomatic for opiate dependence with withdrawal. He was seen by Addiction Medicine who served patient methadone any will follow up outpatient. Time Spent with Patient Time attestation: Total time managing care of this patient today ____ minutes. Discharge coordination time: Greater than 30 minutes Quality: Safe Use of Opioids Does Pt have an Active Cancer Diagnosis on the Problem List?: No Quality: Stroke Does the patient have a stroke diagnosis?: No Physical Exam Vital Signs: Vital Signs: Last Vital Signs Temp 99.2 F 09/18/22 08:00 Pulse 58 09/18/22 08:00 Resp 18 09/18/22 08:00 BP 179/89 H 09/18/22 08:00 Pulse Ox 98 09/18/22 08:00 O2 Del Method 09/18/22 08:00 BMI result Body Mass Index 22.4 imprving hand swelling and tenderness DS: Data Data Completed and Pending Labs on day of discharge: Laboratory Results - last 24 hr 09/17/22 09/17/22 09/17/22 11:13 13:07 15:50 POC Glucose 237 H 309 H Random Vancomycin 4.1 L 09/17/22 09/18/22 20:07 07:27 POC Glucose 172 H 258 H Random Vancomycin Preliminary micro results at discharge 09/16/22 11:49 Blood Culture - Preliminary Blood - Venous No growth after 24 hours. 09/16/22 11:49 Blood Culture - Preliminary Blood - Venous No growth after 24 hours. Discharge Plan Discharge Anticipated Discharge Date/Time: 09/18/22 08:42 Patient Disposition: Home, Self-Care Discharge Diagnosis: cellulitis, dm Referrals: Miranda Wong CNP [Nurse Practitioner] - 1 Week Physician,Cecilia J [Primary Care Provider] - 1 Week Discharge Medications: New insulin glargine [Lantus U-100 Insulin] 100 unit/mL Solution 15 unit subcut DAILY Qty: 10 0RF insulin lispro [Humalog U-100 Insulin] 100 unit/mL Solution See Protocol subcut QIDACHS Qty: 10 0RF Protocol: Insulin Correction Scale Less than or equal to 110 ---- Give (units): 0 111 to 150 Give (units): 0 151 to 200 Give (units): 2 201 to 250 Give (units): 4 251 to 300 Give (units): 6 301 to 350 Give (units): 8 Greater than 350 Give (units): 10 Call MD if Blood Glucose > : 350 doxycycline hyclate 100 mg tablet 100 mg PO BID Qty: 14 0RF metformin 1,000 mg tablet 1,000 mg PO BIDWMEAL Qty: 60 0RF (DME) FreeStyle Lite Strips Strip Qty: 100 0RF Rx Instructions: Test four times a day or as directed. (DME) blood-glucose meter [FreeStyle Lite Meter] Kit Qty: 1 0RF Rx Instructions: As Directed alcohol swabs Pads, Medicated 1 pad TOPICAL QIDACHS Qty: 100 0RF Rx Instructions: Use four times a day or as directed. (DME) pen needle, diabetic 32 gauge x 1/4 needle Qty: 100 0RF Rx Instructions: Use four times a day or as directed. (DME) lancets [FreeStyle Lancets] 28 gauge misc Qty: 100 0RF Rx Instructions: Test four times a day or as directed. Discharge Orders: Discharge Order (Routine); Ordered 09/18/22 Ordered By: Sundeep Cheek Diet: Diabetic diet Activity on Discharge: As tolerated Stand Alone Forms: Patient Portal Discharge page Care Plan Goals: recovery Health Concerns: dm, frostbite with cellulitis Plan of Treatment: 1 week doxy, insulin and metformin, follow up with pcp Assessment: see above
[2022-09-18 11:34] LABS: Glucose, Whole Blood 261 mg/dL (60-115)
[2022-09-18 12:12] LABS: Vancomycin Trough 11.9 mcg/mL (10.0-20.0)
[2022-09-18 12:16] LABS: Creatinine Clr Calc Pharmacy 126.3; Estimated Glomerular Filt Rate > 60
--- NOTE | 2022-09-18 12:28 | HE.PHANOTE ---
Vancomycin Dosing Level therapeutic. Continue current regimen, next level 09/19/2022 @ 1200. Jose NairD
[2022-09-18] MEDS: Doxycycline Monohydrate 100 MG CAPSULE PO (13:21)
--- NOTE | 2022-09-18 16:41 | MHC.CM.PN ---
CM MET WITH PT TO DISCUSS DC PLANNING PT REPORTS HE WAS GIVEN A LIST OF SA TREATMENT FACILITIES BY THE MECHANICAL METER TESTER HE REPORTS HE DOES NOT WANT TO GO TO A CARE HOME FROM HERE, HE SAYS I WOULD RATHER TAKE MY CHANCES ON THE STREETS . HE REPORTS HE WILL [facility] IN [place] HE IS AWARE CM WILL ATTEMPT TO GET A LYFT HOWEVER THEY ARE NOT ALWAYS AVAILABLE BUS PASSES WILL BE PROVIDED IF A LYFT CANNOT BE SECURED.
[2022-09-19 08:48] LABS: HBS Num1 0.35 mIU/mL (0-7.99); HBc Num1 0.08 S/CO (0.00-0.79); HBsAGNum1 0.27 S/CO (0.00-0.99); HIV AB/AG Nonreactive (Nonreactive); HIV Num 1 0.36 S/CO (0.00-0.99); Hepatitis B Core Antibody Nonreactive (Nonreactive); Hepatitis B Surface Antigen Negative (Negative); ~Hepatitis B Surface Antibody NONREACTIVE (Nonreactive); ~Hepatitis C Antibody Reactive (Nonreactive)
[2022-09-19 09:17] LABS: ~HepC Num1 8.61 S/CO (0.00-0.79); ~Hepatitis C Antibody Reactive (Nonreactive)
[2022-09-19 11:00] LABS: HIV AB/AG Nonreactive (Nonreactive); HIV Num 1 0.07 S/CO (0.00-0.99)
== END 2022-09-18 17:11 | disposition home or self-care (01) | DRG 815 ==
LOC: HO.ED 09-16 12:21 → HO.EDOVER 09-16 12:35 → HO.S3 09-16 18:15
PROVIDERS: Emergency Medicine; Emergency Medicine Emergency Medical Services; Internal Medicine; Nurse Practitioner Psychiatric/Mental Health; Admitting Provider Internal Medicine; Emergency Provider Emergency Medicine Emergency Medical Services; Visit Provider Internal Medicine
DX: T33.522A Superficial frostbite of left hand, initial encounter (principal); L03.115 Cellulitis of right lower limb; E11.65 Type 2 diabetes mellitus with hyperglycemia; L03.113 Cellulitis of right upper limb; F17.210 Nicotine dependence, cigarettes, uncomplicated; F11.23 Opioid dependence with withdrawal; T33.521A Superficial frostbite of right hand, initial encounter; L03.114 Cellulitis of left upper limb; L03.116 Cellulitis of left lower limb; M08.90 Juvenile arthritis, unspecified, unspecified site; Z20.822 Contact with and (suspected) exposure to COVID-19; Z91.14 Patient's other noncompliance with medication regimen; Z59.02 Unsheltered homelessness; Z71.6 Tobacco abuse counseling; Z79.4 Long term (current) use of insulin; Z79.84 Long term (current) use of oral hypoglycemic drugs; X31.XXXA Exposure to excessive natural cold, initial encounter
CPT/HCPCS: 36415; 71045; 80048; 80053; 80202; 80307; 82565; 82947; 83605; 83735; 84550; 85025; 85027; 85652; 86140; 86704; 86706; 86803; 87040; 87340; 87389; 87635; 99221; 99285; J0696; J3370; J3371